=== PATIENT | female | born 1995 | race Two or more races ===

== ENCOUNTER 2024-04-22 09:10 | Inpatient (IN) | payer OTHER ==
[~2024-04-22] VITALS: Ht 160 cm; Wt 72.2 kg
[2024-04-22 09:41] LABS: Urine Bacteria None Seen /hpf (None Seen)
[2024-04-22 09:44] LABS: Basophils # (auto) 0.1 10 ^3/uL (0-0.2); Basophils % (auto) 0.4 % (0.0-2.0); Eosinophils # (auto) 0.3 10 ^3/uL (0-0.8); Eosinophils % (auto) 2.2 % (0.0-7.0); Hematocrit 37.6 % (36.0-46.0); Hemoglobin 12.2 g/dL (12.2-16.2); Lymphocytes # (auto) 1.3 10 ^3/uL (0.4-5.4); Lymphocytes % (auto) 11.5 % (10.0-50.0); Mean Corpuscular Hemoglobin 25.3 pg (28.0-32.0); Mean Corpuscular Hgb Conc. 32.5 g/dL (32.0-36.0); Mean Corpuscular Volume 77.9 fL (80.0-100.0); Monocytes # (auto) 0.6 10 ^3/uL (0-1.3); Monocytes % (auto) 5.6 % (0.0-12.0); Neutrophils # (auto) 9.2 10 ^3/uL (1.6-8.6); Neutrophils % (auto) 80.3 % (37.0-80.0); Platelet Count (auto) 281 10^3/uL (140-450); Red Blood Cells 4.83 10^6/uL (4.0-5.20); Red Cell Distribution Width 15.1 % (11.8-14.3); White Blood Cell 11.5 10^3/uL (4.4-10.8)
[2024-04-22] MEDS: SODIUM CHLORIDE 0.9% 500 ML IVB ONE (09:52)
[2024-04-22] MEDS: PANTOPRAZOLE 40 MG/10 ML VIAL INJ IV ONE (09:52)
[2024-04-22] MEDS: ONDANSETRON HCL 4 MG/2 ML VIAL IV ONE (09:52)
[2024-04-22] MEDS: MORPHINE SULFATE 4 MG/ML SYR/VIAL IV ONE (09:53)
[2024-04-22 09:54] LABS: Urine Blood 3+ /uL (Negative); Urine Clarity Turbid (Clear); Urine Color Colorless (Yellow); Urine Mucus FEW (None Seen); Urine Protein, UAD 1+ (Negative); Urine Specific Gravity 1.022 (1.001-1.035); Urine Urobilinogen Normal (Negative); Urine WBC 50 /hpf (0 - 5)
[2024-04-22 10:02] LABS: Alanine Aminotransferase 46 U/L (7-40); Albumin 4.2 g/dL (3.2-4.8); Alkaline Phosphatase 119 U/L (46-116); Anion Gap 7 (5-15); Aspartate Aminotransferase 32 U/L (13-40); BUN/Creatinine Ratio 9.2 (10.0-20.0); Blood Urea Nitrogen 7 mg/dL (9-23); Calcium 9.7 mg/dL (8.7-10.4); Carbon Dioxide 27 mmol/L (20-31); Chloride 107 mmol/L (98-107); Glucose 98 mg/dL (74-106); Potassium 3.6 mmol/L (3.5-5.1); Sodium 141 mmol/L (136-145)
[2024-04-22 10:03] LABS: Bilirubin, Total 0.3 mg/dL (0.2-1.0); Total Protein 7.6 g/dL (5.7-8.2)
[2024-04-22 10:07] VITALS: PULSE 76; RESP 18; O2SAT 100
[2024-04-22] MEDS: cefTRIAXone 1GM/50ML D5W 50 ML IV ONE (11:15)
[2024-04-22 11:45] VITALS: PULSE 60; RESP 16; O2SAT 100
[2024-04-22] MEDS ORDERED: MORPHINE SULFATE INJ 2 MG/ml SYRG IV PRN (14:00)
[2024-04-22] MEDS ORDERED: NITROGLYCERIN 0.4 MG SL TAB SL PRN (14:00)
[2024-04-22] MEDS ORDERED: ACETAMINOPHEN 325 MG TAB PO PRN (14:00)
[2024-04-22] MEDS ORDERED: DOCUSATE SOD 100 MG CAP PO PRN (14:00)
[2024-04-22] MEDS: HYDROcodone-ACET 5/325MG TAB PO PRN (15:06)
[2024-04-22] MEDS: ONDANSETRON HCL 4 MG/2 ML VIAL IV PRN (15:06)
[2024-04-22] MEDS: SODIUM CHLORIDE 0.9% 1,000 ML IV SCH (15:13)
[2024-04-22 15:38] VITALS: BP 135/76; PULSE 61; RESP 18; TEMP 98.2; O2SAT 100
[2024-04-22] MEDS: MORPHINE SULFATE INJ 2 MG/ml SYRG IV PRN (15:53)
[2024-04-22 16:53] VITALS: BP 135/76; PULSE 61; RESP 18; TEMP 98.2; O2SAT 98
[2024-04-22 20:00] VITALS: PULSE 61; RESP 16; O2SAT 98
[2024-04-22 21:00] VITALS: BP 124/72; PULSE 61; RESP 16; TEMP 97.8; O2SAT 98
[2024-04-23] VITALS (8 sets, daily range): BP systolic 115–137; BP diastolic 70–84; PULSE 60–97; RESP 16–20; TEMP 98.1–99.2; O2SAT 94–100
[2024-04-23 06:43] LABS: Eosinophils # (auto) 0.3 10 ^3/uL (0-0.8); Lymphocytes # (auto) 1.8 10 ^3/uL (0.4-5.4); Platelet Count (auto) 238 10^3/uL (140-450)
[2024-04-23 06:48] LABS: Alanine Aminotransferase 35 U/L (7-40); Albumin 3.8 g/dL (3.2-4.8); Alkaline Phosphatase 97 U/L (46-116); Anion Gap 8 (5-15); Aspartate Aminotransferase 22 U/L (13-40); BUN/Creatinine Ratio 7.2 (10.0-20.0); Blood Urea Nitrogen 5 mg/dL (9-23); Carbon Dioxide 26 mmol/L (20-31); Chloride 106 mmol/L (98-107); Glucose 101 mg/dL (74-106); Potassium 3.7 mmol/L (3.5-5.1); Sodium 140 mmol/L (136-145)
[2024-04-23 06:49] LABS: Bilirubin, Total 0.4 mg/dL (0.2-1.0); Total Protein 6.7 g/dL (5.7-8.2)
[2024-04-23 06:50] LABS: Basophils # (auto) 0 10 ^3/uL (0-0.2); Basophils % (auto) 0.4 % (0.0-2.0); Eosinophils % (auto) 2.5 % (0.0-7.0); Hematocrit 35.4 % (36.0-46.0); Hemoglobin 11.5 g/dL (12.2-16.2); Lymphocytes % (auto) 16.3 % (10.0-50.0); Mean Corpuscular Hemoglobin 25.4 pg (28.0-32.0); Mean Corpuscular Hgb Conc. 32.5 g/dL (32.0-36.0); Monocytes % (auto) 8.5 % (0.0-12.0); Neutrophils # (auto) 8.1 10 ^3/uL (1.6-8.6); Neutrophils % (auto) 72.3 % (37.0-80.0); Red Blood Cells 4.54 10^6/uL (4.0-5.20); Red Cell Distribution Width 15.1 % (11.8-14.3); White Blood Cell 11.1 10^3/uL (4.4-10.8)
[2024-04-23] MEDS: cefTRIAXone 1GM/50ML D5W 50 ML IV SCH (11:52)
[2024-04-23] MEDS: FAMOTIDINE 20 MG TAB PO ONE (18:07)
[2024-04-23] MEDS: MAALOX PLUS or MAALOX 30 ML PO ONE (18:07)
[2024-04-24] VITALS (7 sets, daily range): BP systolic 95–118; BP diastolic 53–74; PULSE 54–84; RESP 15–20; TEMP 97.6–98.5; O2SAT 95–100
[2024-04-24] MEDS: FAMOTIDINE 20 MG TAB PO SCH (10:35)
[2024-04-24] MEDS ORDERED: CEFP200T15 PO (17:51)
[2024-04-24] MEDS ORDERED: FAMO-12 PO (17:51)
[2024-04-25] VITALS (7 sets, daily range): BP systolic 100–147; BP diastolic 60–78; PULSE 54–77; RESP 16–19; TEMP 97.5–98.6; O2SAT 97–100
[2024-04-25] MEDS ORDERED: ZOFR4T PO (14:45)
== END 2024-04-25 17:40 | disposition home or self-care (01) | DRG 249 ==
LOC: ER 09:10 → OVERFLOW 14:42 → WEST WING 15:28
PROVIDERS: ADMIT Nurse Practitioner Family; ATTEND Student in an Organized Health Care Education/Training Program
DX: K52.9 Noninfective gastroenteritis and colitis, unspecified (principal); K83.8 Other specified diseases of biliary tract; K80.20 Calculus of gallbladder without cholecystitis without obstruction; D72.829 Elevated white blood cell count, unspecified
CPT/HCPCS: 36415; 76705; 80053; 81001; 83690; 85025; 87086; 96365; 96375; G0378; J2405; J2470